=== PATIENT | female | born 1995 | race Caucasian/White ===

== ENCOUNTER → 2020-03-18 17:01 | Outpatient (CLI) | payer OTHER, SELFPAY ==
--- NOTE | 2020-03-18 17:09 | DI.MRI.S_ITS ---
PROCEDURE: MR TMJ WO CON INDICATIONS: Unspecified temporomandibular joint disorder, unsp TECHNIQUE: Axial T1 spin echo, coronal and sagittal PD fast spin echo through the temporomandibular joints, in both the closed- and open-mouth positions. COMPARISON: None. FINDINGS: Image quality: Excellent. Right: Joint is normally aligned on closed and open-mouth positioning. Articular disk demonstrates normal location and morphology. However, on the open mouth images, the right-sided disc is pushed anteriorly and does not appropriately capture. This can be seen on series 11, image 9. No bony erosions or osteophytes. Left: Joint is normally aligned on closed and open-mouth positioning. Articular disk demonstrates normal location and morphology. No bony erosions or osteophytes. IMPRESSION: On the open mouth images, the right-sided articular disc does not appropriately capture. Please correlate with known patient symptoms. Dictated by: Nathaniel Plaza M.D. on 03/18/2020 at 18:27 Approved by: Nathaniel Plaza M.D. on 03/18/2020 at 18:32
== END ==
PROVIDERS: Referring Provider Dentist Oral and Maxillofacial Surgery; Visit Provider Dentist Oral and Maxillofacial Surgery
DX: M26.609 Unspecified temporomandibular joint disorder, unspecified side (principal)
CPT/HCPCS: 70336